=== PATIENT | male | born 1960 | race Caucasian/White ===

== ENCOUNTER 2022-02-11 14:38 | Emergency (ER) | payer SELFPAY ==
--- NOTE | ~2022-02-11 | XR_ITS ---
EXAMINATION: XR toe 1st LT min 2V DATE: 02/11/2022 15:06 INDICATION: Left great toe injury and pain. TECHNIQUE: 3 views of left great toe were obtained. COMPARISON: None. FINDINGS: Bone alignment is normal. No fracture. There is mild osteoarthritis of first metatarsophala ngeal joint. IMPRESSION: 1. No fracture. Reviewed, dictated and finalized at location A. IMPRESSION: 1. No fracture.
[2022-02-11 14:47] VITALS: BP 160/70; PULSE 73; RESP 18; TEMP 37.2; O2SAT 100
--- NOTE | 2022-02-11 14:54 | ED.LOWEXIN ---
HPI - Extremity Injury (Lower) General Chief Complaint: Extremity Injury, Lower Stated Complaint: Injury to toe on left foot Time Seen by Provider: 02/11/22 14:54 Source: patient and RN notes reviewed History of Present Illness HPI Narrative: Patient is a 61-year-old male who presents the urgent care with complaints of left great toe pain. Patient states that yesterday he was wearing a tennis shoe and dropped a 35 pound alternator on the toe. Patient states that he has been eating ibuprofen . No other acute complaints. No acute distress noted. Patient aware of the plan of care. Some parts of this dictation were generated by voice recognition software and may contain typographical and/or grammatical inaccuracies. Related Data Home Medications Medication Instructions Recorded Confirmed No Home Medications 02/11/22 02/11/22 Allergies Allergy/AdvReac Type Severity Reaction Status Date / Time No Known Allergies Allergy Verified 02/11/22 14:57 Review of Systems Review of Systems: CONSTITUTIONAL: Denies fever, chills, or sweats. EYES: Denies visual changes, redness, or discharge. ENT: Denies rhinorrhea, congestion, sore throat, or otalgia. CARDIOVASCULAR: Denies chest pain, palpitations, or edema. RESPIRATORY: Denies cough or dyspnea. GASTROINTESTINAL: Denies abdominal pain, nausea, vomiting, or diarrhea. GENITOURINARY: Denies dysuria or hematuria. SKIN: Denies rash or itching. MUSCULOSKELETAL: Reports of left great toe pain NEUROLOGIC: Denies headache, numbness, or weakness. All other systems reviewed are negative, except as documented in HPI. PMFSH Comments At the time of my signature, I reviewed and agree with the nursing past medical, surgical, social, and family history. There is no relevant family history pertinent to the patient complaint. Exam Narrative: GENERAL: This is a well-nourished, well-developed patient, in no apparent distress. HEAD: normocephalic, atraumatic. EYES: PERRL. Sclera clear/white. Vision is grossly intact. EARS: External ears normal NOSE: External nose normal with no obvious nasal discharge, nares without redness, no rhinorrhea. THROAT: Mucous membranes moist NECK: Neck supple SKIN: Notable severe toe fungus affecting all toes. Warm, intact with no suspicious lesions or rash, good texture and turgor. NEURO: awake, alert, and oriented to person, place and time. There were no obvious focal neurologic abnormalities. EXTREMITIES: Mild edema and moderate ecchymosis noted to the tip of the left great toe with moderate tenderness. Positive strong left pedal pulse with capillary refill less than 2 seconds. Course Course Level of Care: Express Care Visit Vital Signs Vital signs: Vital Signs Temperature 98.9 F 02/11/22 14:47 Pulse Rate 73 02/11/22 14:47 Respiratory Rate 18 02/11/22 14:47 Blood Pressure 160/70 H 02/11/22 14:47 Pulse Oximetry 100 02/11/22 14:47 Oxygen Delivery Room Air 02/11/22 14:47 Temperature 98.9 F 02/11/22 14:47 Pulse Rate 73 02/11/22 14:47 Respiratory Rate 18 02/11/22 14:47 Blood Pressure 160/70 H 02/11/22 15:00 Pulse Oximetry 100 02/11/22 14:47 Oxygen Delivery Room Air 02/11/22 14:47 Reviewed-patient is informed that they may have pre-hypertension or hypertension based on a blood pressure reading in the department. I recommend the patient call the primary care provider listed on their discharge instructions or a physician of their choice this week to arrange follow-up for further evaluation of possible pre-hypertension or hypertension. MDM - Extremity Injury (Lower) MDM Narrative Medical decision making narrative: Reviewed lab results with the patient. He is aware that there is not a fracture on the tuft of the left great toe. Advised him to use Tylenol and limit his ibuprofen as needed for pain and discomfort. Keep it elevated and use ice. Wear the postop shoe as directed. If you develop any increasing pain associated
[2022-02-11 15:00] VITALS: BP 160/70
== END 2022-02-11 15:15 | disposition home or self-care (01) ==
PROVIDERS: Emergency Provider Nurse Practitioner Family; PCP Family Medicine
DX: S90.112A Contusion of left great toe without damage to nail, initial encounter (principal); W20.8XXA Other cause of strike by thrown, projected or falling object, initial encounter
CPT/HCPCS: 73660; 99203; G0463

== ENCOUNTER 2022-07-10 13:41 | Inpatient (IN) | payer MEDICAID, SELFPAY ==
[2022-07-10] VITALS (8 sets, daily range): BP systolic 158–211; BP diastolic 70–92; PULSE 74–88; RESP 14–22; TEMP 36.2–36.9; O2SAT 96–99; BMI 39.1
--- NOTE | ~2022-07-10 | XR_ITS ---
EXAMINATION: XR chest 2V DATE: 07/10/2022 19:17 INDICATION: Right flank and upper abdominal pain TECHNIQUE: PA and lateral views of the chest were obtained. COMPARISON: None FINDINGS: Mild linear band of discoid atelectasis/scarring at the lingula. No other airspace opacities, pulmona ry edema, pleural effusion or pneumothorax. The cardiomediastinal silhouette is normal. There are qiana dging osteophytes at multiple levels in the spine, consistent with diffuse idiopathic skeletal hypero stosis (DISH). IMPRESSION: 1. Mild discoid atelectasis at the lingula. Reviewed, dictated and finalized at location A. TY SITTER
--- NOTE | ~2022-07-10 | MR_ITS ---
EXAMINATION: MR sacroiliac jts wo con DATE: 07/13/2022 07:46 INDICATION: Low back pain. TECHNIQUE: Magnetic resonance imaging (MRI) of the sacroiliac joints was performed without intravenou s contrast. COMPARISON: CT abdomen and pelvis 07/10/2022 FINDINGS: Bone alignment is normal. There is moderate lumbar spondylosis. There is bridging bone at t he sacroiliac joints. There is mild subchondral edema-like marrow signal intensity in left ilium at t he sacroiliac joint where there is an erosion versus subchondral cyst by CT. No fracture. IMPRESSION: 1. Mild nonspecific arthritis of left sacroiliac joint. Ankylosis of the sacroiliac joints. Reviewed, dictated and finalized at location E. OTICS AND VICE DETECTIVE IMPRESSION: 1. Mild nonspecific arthritis of left sacroiliac joint. Ankylosis of the sacroi liac joints.
--- NOTE | ~2022-07-10 | CT_ITS ---
EXAMINATION: CT abdomen pelvis wo con DATE: 07/10/2022 17:46 INDICATION: Right abdominal and mid back pain. TECHNIQUE: Computed tomography (CT) of the abdomen and pelvis was performed without intravenous contr ast. Automated exposure control and iterative reconstruction technique were employed. The dose-length product was 1236.71 mGy-cm. COMPARISON: None FINDINGS: Lung bases are clear. Heart size is normal. No pericardial or pleural effusion. There are a few scatt ered hepatic and splenic calcific lesions consistent with old granulomatous disease. Gallbladder and bilateral adrenal glands are normal. Multiple tiny dystrophic calcifications at the neck, head and un cinate process of the pancreas likely sequela of chronic pancreatitis. No peripancreatic inflammatory stranding to suggest acute pancreatitis. Mild bilateral renal atrophy. No urolithiasis or hydronephr osis. Bowels including the appendix are normal. Bladder is normal. No free intraperitoneal gas or flu id. No pathologically enlarged abdominal or pelvic lymphadenopathy. Small bilateral fat-containing in guinal hernias. There is ankylosis of the bilateral sacroiliac joints, more dense on the right. Moder ate lower lumbar facet osteoarthritis. IMPRESSION: 1. Normal gallbladder and appendix. No urolithiasis or acute intra-abdominal/pelvic process. 2. Multiple tiny dystrophic proximal calcific location and likely sequela of chronic pancreatitis. No findings to suggest acute pancreatitis. 3. Small bilateral fat-containing inguinal hernias. Reviewed, dictated and finalized at location A. AVER WOOD IMPRESSION: 1. Normal gallbladder and appendix. No urolithiasis or acute intra-abdominal/pe lvic process. 2. Multiple tiny dystrophic proximal calcific location and likely sequela of ch ronic pancreatitis. No findings to suggest acute pancreatitis. 3. Small bilateral fat-containing inguinal hernias.
--- NOTE | ~2022-07-10 | US_ITS ---
EXAMINATION: US renal BI DATE: 07/11/2022 08:34 INDICATION: Renal failure. TECHNIQUE: Multiple ultrasound grayscale images of the kidneys were obtained. COMPARISON: CT abdomen and pelvis 07/10/2022 FINDINGS: The right kidney measures 11.5 x 6.5 x 6.4 cm. The left kidney measures 12.1 x 7.2 x 5.5 cm. The kidn eys demonstrate normal parenchymal echogenicity. There is no hydronephrosis. The bladder is normal. IMPRESSION: 1. Normal kidneys. No hydronephrosis. Reviewed, dictated and finalized at location A. AD SEPARATOR
--- NOTE | ~2022-07-10 | NM_ITS ---
EXAMINATION: NM pulmonary perfusion DATE: 07/10/2022 22:30 INDICATION: Right mid back and flank pain. TECHNIQUE: 5.33 mCi mCi Tc-99m MAA by intravenous route. Scintigraphic images of the chest were obta ined. COMPARISON: Radiograph dated 07/20/2022 FINDINGS: There is relatively homogeneous perfusion throughout the lungs. No discrete ventilation and perfusio n mismatch is identified. IMPRESSION: 1. Low probability for pulmonary embolism. Reviewed, dictated and finalized at location A. OLOGY MANAGER
--- NOTE | ~2022-07-10 | MR_ITS ---
EXAMINATION: MR lumbar spine wo con DATE: 07/13/2022 07:47 INDICATION: Low back pain. TECHNIQUE: Magnetic resonance imaging (MRI) of the lumbar spine was performed without intravenous con trast. Sequences included sagittal T2-weighted FSE, sagittal T2-weighted FS FSE, sagittal T1-weighted FSE, and axial T2-weighted FSE. COMPARISON: None FINDINGS: Bone alignment is normal. L5 is a transitional segment. There is a hemangioma in L2 vertebr al body. There is mild chronic anterior wedging of T10 and T12 vertebral bodies. There is mildly decr eased disc height at L4-L5. The distal spinal cord signal intensity is normal. The conus medullaris i s at L1. The following disc levels are specifically discussed: L1-L2: The disc does not extend beyond the endplate margin. There is mild bilateral facet joint osteo arthritis. There is no neural foraminal stenosis. There is no central canal stenosis. L2-L3: The disc is bulging. There is mild bilateral facet joint osteoarthritis. There is mild bilater al neural foraminal stenosis. There is no central canal stenosis. L3-L4: The disc is bulging. There is severe bilateral facet joint osteoarthritis. There is moderate b ilateral neural foraminal stenosis. There is mild central canal stenosis. L4-L5: The disc is bulging and has an annular fissure. There is severe bilateral facet joint osteoart hritis. There is moderate bilateral neural foraminal stenosis. There is mild central canal stenosis. L5-S1: The disc does not extend beyond the endplate margin. There is no facet joint hypertrophy. Ther e is no neural foraminal stenosis. There is no central canal stenosis. IMPRESSION: 1. Moderate lumbar spondylosis. Reviewed, dictated and finalized at location E. SUPPORT ANALYST SUPERVISOR
--- NOTE | 2022-07-10 16:49 | ED.BACK ---
HPI - Back Pain/Injury General Chief Complaint: Back Pain/Injury Stated Complaint: back pain Time Seen by Provider: 07/10/22 16:24 Source: patient Mode of arrival: ambulatory Limitations: no limitations History of Present Illness HPI Narrative: Patient is a 61-year-old male who presents the ED with report of right mid back pain. Patient reports the pain began yesterday morning. Was mild at first. He was able to go to work and took a leftover hydrocodone which provided some relief. Patient had persistent pain today. Pain has been constant. While waiting in the waiting room, the pain did begin to radiate around to the right upper abdomen. He reports some nausea, bloating, and frequent issues with constipation. He was able to pass a few small pieces of stool today. Denied rectal bleeding, diarrhea, vomiting, fevers, chest pain, difficulty breathing, dysuria, hematuria, frequency, urgency. Patient does mention having a similar pain 10-15 years ago when he was diagnosed with kidney stone. Related Data Home Medications Medication Instructions Recorded Confirmed No Home Medications 02/11/22 02/11/22 Allergies Allergy/AdvReac Type Severity Reaction Status Date / Time No Known Allergies Allergy Verified 07/10/22 16:24 Review of Systems Review of Systems: CONSTITUTIONAL: Denies fever, chills, or sweats. CARDIOVASCULAR: Denies chest pain, palpitations, or edema. RESPIRATORY: Denies cough or dyspnea. GASTROINTESTINAL: See HPI. GENITOURINARY: See HPI. SKIN: Denies rash or itching. MUSCULOSKELETAL: See HPI. All systems reviewed & are unremarkable except as noted in HPI and below PMFSH Past Medical History Medical History Kidney stones Surgical History Surgical History No pertinent past surgical history Social History Social History Smoking status: Never smoker Exam Narrative: GENERAL: Uncomfortable appearing, obese, non-toxic, in mild acute distress due to pain. HEAD: Normocephalic, atraumatic. NECK: Supple. No adenopathy, no masses. RESPIRATORY: Airway patent, respirations nonlabored. Clear to auscultation bilaterally, no rales, rhonchi, wheezing. CARDIOVASCULAR: Regular rate and rhythm without murmurs, rubs, or gallops. Peripheral pulses 2+ and equal bilaterally. ABDOMINAL: Soft, tenderness in right upper quadrant, right lateral abdomen, right lower quadrant, nondistended, no hepatosplenomegaly. Normoactive BS. MUSCULOSKELETAL: Moves all extremities. Strength/ROM intact without gross deformities. No significant tenderness to midline thoracic or lumbar spine. Tenderness to palpation in right flank/lumbar region, reproducing pain. SKIN: Warm, dry, normal color. No rashes. No vesicles. NEURO: A&O X3. Speech clear. Cranial nerves II-XII grossly intact. Steady gait. No ataxic movements. PSYCHIATRIC: Appropriate mood and affect. Normal interaction. Course Vital Signs Vital signs: Vital Signs Temperature 98.5 F 07/10/22 14:11 Pulse Rate 77 07/10/22 14:11 Respiratory Rate 14 07/10/22 14:11 Blood Pressure 211/90 H 07/10/22 14:11 Pulse Oximetry 97 07/10/22 14:11 Temperature 98.5 F 07/10/22 14:11 Pulse Rate 87 07/10/22 19:11 Respiratory Rate 17 07/10/22 19:11 Blood Pressure 191/87 H 07/10/22 19:11 Pulse Oximetry 97 07/10/22 19:11 MDM - Back Pain/Injury MDM Narrative Medical decision making narrative: Patient presented to ED with right mid back pain x2 days. Patient hypertensive upon arrival, likely component of pain. He does state he has been told he was hypertensive in the past but is not currently on any medications. CBC showing mild leukocytosis of 12.5. CMP with creatinine of 2.6, no records to compare to. Psychic Reader drawn POC by Radiology and 2.9. BUN 28. Unclear whether this is acute or chron
[2022-07-10] MEDS: SODIUM CHLORIDE 0.9% IV 1,000 ML 999 ML IV CONT ×2 (17:26→19:44)
[2022-07-10] MEDS: ONDANSETRON INJ 4 MG/2 ML VIAL IV PUSH (17:26)
[2022-07-10] MEDS: MORPHINE SULFATE (*CRX) 4 MG/ML INJ IV PUSH ×2 (17:26→19:45)
[2022-07-10 17:35] LABS: Basophils Absolute Auto 0.1 K/mm3 (0.0-0.1); Eosinophils Absolute Auto 0.5 K/mm3 (0-0.3); Eosinophils Percent Auto 3.7 % (0-4.4); Hematocrit 50.2 % (42.0-52.0); Hemoglobin 16.9 g/dL (14.0-18.0); Immature Granulocyte Absolute 0.11 K/mm3 (0.00-0.031); Immature Granulocyte Percent A 0.9 % (0-0.5); Lymphocytes Absolute Auto 2.78 K/mm3 (0.9-3.2); Lymphocytes Percent Auto 21.9 % (18.3-44.2); Mean Corpuscular HGB Conc 33.7 g/dl (32-36); Mean Corpuscular Hemoglobin 31.5 pg (26-34); Mean Corpuscular Volume 93.7 fl (80-100); Mean Platelet Volume 10.9 fl (7.4-10.4); Monocytes Absolute Auto 0.9 K/mm3 (0.1-0.6); Monocytes Percent Auto 7.2 % (2.6-8.5); Neutrophils Absolute Auto 8.3 K/mm3 (1.3-6.7); Neutrophils Percent Auto 65.3 % (45.5-73.1); Platelet Count Result 265 k/mm3 (150-375); Red Blood Count 5.36 M/mm3 (4.6-6.20); Red Cell Distribution Width 13.9 % (11.5-14.5); White Blood Count 12.7 K/mm3 (4.5-10.0)
[2022-07-10 17:39] LABS: Estimated CRCL calculation 27 ml/min; Estimated Glomerular Filt Rate 22
[2022-07-10 17:44] LABS: Alanine Aminotransferase 34 U/L (6-50); Albumin Level 3.8 g/dL (3.5-5.1); Alkaline Phosphatase 92 U/L (38-126); Anion Gap 2 mmol/L (8-16); Aspartate Amino Transferase 24 U/L (17-59); Bilirubin,Total 0.4 mg/dL (0.2-1.3); Blood Urea Nitrogen 28 mg/dL (9-20); Calcium 9.5 mg/dL (8.4-10.2); Carbon Dioxide 24 mmol/L (22-30); Chloride 108 mmol/L (98-107); Estimated CRCL calculation 30 ml/min; Estimated Glomerular Filt Rate 25; Glucose 106 mg/dL (65-110); Lipase 99 U/L (23-300); Potassium 4.5 mmol/L (3.4-5.0); Sodium 134 mmol/L (137-145)
--- NOTE | 2022-07-10 18:54 | ECG_ITS ---
Measurements Intervals Wilson Rate: 66 P: 33 CA: 143 QRS: -3 QRSD: 100 T: 60 QT: 377 QTc: 395 Interpretive Statements SINUS RHYTHM POOR R-WAVE PROGRESSION NONSPECIFIC T-WAVE ABNORMALITY NO PREVIOUS ECG AVAILABLE FOR COMPARISON Electronically Signed On 07-11-2022 13:04:17 LINEN CONTROLLER by Luis Lawton M.D.
[2022-07-10 18:57] LABS: Appearance Urine Clear (Clear); Bilirubin Urine Negative (Negative); Blood Urine 2+ (Negative); Color Urine Yellow (Yellow); Glucose Urine UA Trace mg/dL (Negative); Ketones Urine Negative (Negative); Leukocyte Esterase Ur Negative LEU/UL (Negative); Nitrate Urine Negative (Negative); Protein Urine 3+ mg/dL (Negative); Specific Grav Ur 1.025 (1.001-1.035); Urobilinogen Urine 0.2 mg/dL (<2.0); pH Urine 6.5 (5.0-9.0)
[2022-07-10 19:04] LABS: Mucus Urine Rare /lpf; RBC Urine 0-2 /hpf (0-2); Squamous Epithelial Cell Urine Rare /hpf (Few); WBC Urine 0-3 /hpf
[2022-07-10 19:09] LABS: Add Urine Microscopic? YES
[2022-07-10] MEDS: hydrALAZINE HCL 20 MG/ML VIAL 10 MG IV PUSH (19:43)
[2022-07-10 19:59] LABS: D Dimer 0.58 ug/mL (<0.48)
[2022-07-10 20:00] LABS: Troponin I < 0.012 ng/mL (0.000-0.034)
[2022-07-10 20:16] LABS: Influenza A QL RT-PCR Negative (Negative); Influenza B QL RT-PCR Negative (Negative); SARS-CoV-2 RNA PCR Negative
--- NOTE | 2022-07-10 20:24 | PM.IMHP ---
H&P: HPI History of Present Illness Date/Time: 07/10/22 20:24 Chief Complaint: back pain Narrative: This is a 61-year-old male with past medical history significant for hypertension, obesity, patient has not seen a doctor in a long time he is not on any medications at home his blood pressure is not well controlled patient presented to the emergency room due to back pain localized to the right costovertebral area with radiation to the right lower flank at the abdominal area, patient has been in his usual state of health up until this point described the pain of 10/10 in intensity it is worse with ambulation denies lifting heavy boxes or moving heavy objects, took ibuprofen and Tylenol with no relief, no hematuria, no pain or burning with urination, no fevers, no rigors, no chills, no nausea, no vomiting, no incontinence. Preliminary workup was significant for a creatinine of 2.9 BUN 28, he was noted to be hypertensive with systolic in the range of 160-200s a CT of abdomen and pelvis was reported as: FINDINGS: Lung bases are clear. Heart size is normal. No pericardial or pleural effusion. There are a few scattered hepatic and splenic calcific lesions consistent with old granulomatous disease. Gallbladder and bilateral adrenal glands are normal. Multiple tiny dystrophic calcifications at the neck, head and uncinate process of the pancreas likely sequela of chronic pancreatitis. No peripancreatic inflammatory stranding to suggest acute pancreatitis. Mild bilateral renal atrophy. No urolithiasis or hydronephrosis. Bowels including the appendix are normal. Bladder is normal. No free intraperitoneal gas or fluid. No pathologically enlarged abdominal or pelvic lymphadenopathy. Small bilateral fat-containing inguinal hernias. There is ankylosis of the bilateral sacroiliac joints, more dense on the right. Moderate lower lumbar facet osteoarthritis. IMPRESSION: 1. Normal gallbladder and appendix. No urolithiasis or acute intra-abdominal/pelvic process. 2. Multiple tiny dystrophic proximal calcific location and likely sequela of chronic pancreatitis. No findings to suggest acute pancreatitis. 3. Small bilateral fat-containing inguinal hernias. A chest x-ray was reported as: FINDINGS: Mild linear band of discoid atelectasis/scarring at the lingula. No other airspace opacities, pulmonary edema, pleural effusion or pneumothorax. The cardiomediastinal silhouette is normal. There are bridging osteophytes at multiple levels in the spine, consistent with diffuse idiopathic skeletal hyperostosis (DISH). IMPRESSION: 1. Mild discoid atelectasis at the lingula. A V/Q scan was reported as: FINDINGS: There is relatively homogeneous perfusion throughout the lungs.? No discrete ventilation and perfusion mismatch is identified. IMPRESSION: 1.? Low probability for pulmonary embolism. Patient is been placed in observation for further evaluation management and treatment. Review of Systems Review of Systems: Right costovertebral angle pain Constitutional: Constitutional: Denies chills, Denies fever(s), Denies malaise, Denies night sweats, Denies poor appetite and Denies weakness Eyes: Eyes: Denies change in vision ENT: Denies dysphagia, Denies vertigo, Denies dizziness and Denies odynophagia Cardiovascular: Cardiovascular: Denies chest pain, Denies irregular heart rhythm, Denies leg edema, Denies lightheadedness, Denies radiating jaw, neck or arm pain and Denies dyspnea on exertion Respiratory: Respiratory: Denies chest congestion, Denies cough, Denies excessive phlegm production, Denies pain on inspiration, Denies dyspnea and Denies dyspnea on exertion Gastrointestinal: Gastrointestinal: Reports abdominal pain (Right flank), Denies melena, Denies dyspepsia, Denies heartburn, Denies diarrhea, Denies nausea and Denies vomiting Genitourinary: Genitourinary: Denies dysuria and Reports flank pain (Right-sided) Musculoskeletal: Musculoskeletal: Reports back pain (Rig
[2022-07-10] MEDS: HYDROmorphone HCL INJ (*CRX) 1 MG/ML SYR IV PUSH (20:40)
--- NOTE | 2022-07-10 22:04 | PC.NURSE ---
PT TO NUCLEAR MEDICINE
--- NOTE | 2022-07-10 23:10 | ADMGEN ---
This patient, Parveen Abreu, was admitted to Medical Room 341-01. Patient/family oriented to hospital policies and general routines including ID bracelet, bed and alarms, visiting hours, pain management, procedures, bathroom and other care routines, personal items, smoking policy, room service/diet, and visiting hours. Information on how to activate the Rapid Response Team has been discussed. Patient/Family are encouraged to report perceived risks to care and to ask questions if they do not understand what they are told or what they should do.
[2022-07-11] VITALS (9 sets, daily range): BP systolic 152–159; BP diastolic 79–85; PULSE 58–80; RESP 20; TEMP 35.7–36.6; O2SAT 95–98
--- NOTE | 2022-07-11 | ECHO_ITS ---
Patient Info Name: Parveen Abreu Age: 61 years : 1960 Gender: Male Ht: 66 in Wt: 240 lbs BSA: 2.30 m2 HR: 55 bpm BP: 152 / 85 mmHg Technical Quality: Good Exam Date: 07/11/2022 9:09 AM Exam Location: [facility] Patient Status: Outpatient Admit Date: 07/10/2022 Staff Ordering Physician: Vianey Estevez MD Business Intelligence Administrator: Warren Jacob, IVY, RT Attending Provider: Vianey Estevez MD Referring Physician: Zenaida QUESADA; Exam Type: CA echo doppler color flow Study Info Indications I10 - Essential (primary) hypertension Complete two-dimensional, color flow and Doppler transthoracic echocardiogram is performed. Strain analysis performed. Summary 1. Complete two-dimensional, color flow and Doppler transthoracic echocardiogram is performed. 2. Left ventricular chamber dimension is normal. 3. Left ventricular systolic function is normal, estimated at 60-65%. 4. The left ventricular diastolic function is grade III diastolic dysfunction. 5. E/e' 16 is elevated. 6. Global longitudinal strain is abnormal at -9.7%. 7. There is trace mitral valve regurgitation. Left Ventricle E/e' 16 is elevated. Global longitudinal strain is abnormal at -9.7%. Left ventricular chamber dimension is normal. Left ventricular systolic function is normal, estimated at 60-65%. The left ventricular diastolic function is grade III diastolic dysfunction. Right Ventricle Right ventricular systolic function is normal and with normal TAPSE 2.6 cm. Right ventricular chamber dimension is normal. Left Atria Left atrial chamber dimension is normal. Right Atria Right atrial chamber dimension is normal. Aortic Valve The aortic valve is trileaflet. There is no aortic valve stenosis. There is no aortic valve regurgitation. Pulmonic Valve There is no pulmonic regurgitation. Mitral Valve There is no mitral valve stenosis. There is trace mitral valve regurgitation. Tricuspid Valve There is no tricuspid valve regurgitation. Pericardium/Pleural There is no pericardial effusion. Inferior Vena Cava Normal inferior vena cava with >50% collapse upon inspiration consistent with normal right atrial pressure, 5 mmHg. Aorta The aortic root size at the sinus of Valsalva is normal. Left Ventricular Outflow Tract Name Value Normal LVOT 2D LVOT Diameter 2.0 cm LVOT Doppler LVOT Peak Gradient 4 mmHg LVOT Mean Gradient 2 mmHg LVOT VTI 21 cm LVOT VTI/AV VTI Ratio 0.7 LVOT Stroke Volume 65 ml LVOT CO 4.1 l/min LVOT CI 1.8 l/min/m2 Mitral Valve Name Value Normal MV Doppler MV Decel Ventura 571 cm/s2 MV PHT
[2022-07-11 05:39] LABS: Basophils Absolute Auto 0.1 K/mm3 (0.0-0.1); Basophils Percent Auto 0.9 % (0.2-1.2); Eosinophils Absolute Auto 0.4 K/mm3 (0-0.3); Eosinophils Percent Auto 3.8 % (0-4.4); Hematocrit 43.7 % (42.0-52.0); Hemoglobin 14.6 g/dL (14.0-18.0); Immature Granulocyte Absolute 0.05 K/mm3 (0.00-0.031); Immature Granulocyte Percent A 0.5 % (0-0.5); Mean Corpuscular HGB Conc 33.4 g/dl (32-36); Mean Corpuscular Hemoglobin 31.2 pg (26-34); Mean Corpuscular Volume 93.4 fl (80-100); Monocytes Absolute Auto 0.8 K/mm3 (0.1-0.6); Monocytes Percent Auto 7.7 % (2.6-8.5); Neutrophils Absolute Auto 6.4 K/mm3 (1.3-6.7); Neutrophils Percent Auto 64.1 % (45.5-73.1); Platelet Count Result 225 k/mm3 (150-375); Red Blood Count 4.68 M/mm3 (4.6-6.20); Red Cell Distribution Width 13.8 % (11.5-14.5)
[2022-07-11 05:41] LABS: Anion Gap 1 mmol/L (8-16); Blood Urea Nitrogen 26 mg/dL (9-20); Calcium 8.7 mg/dL (8.4-10.2); Carbon Dioxide 21 mmol/L (22-30); Chloride 110 mmol/L (98-107); Estimated CRCL calculation 38 ml/min; Estimated Glomerular Filt Rate 31; Glucose 100 mg/dL (65-110); Potassium 4.3 mmol/L (3.4-5.0); Sodium 132 mmol/L (137-145)
[2022-07-11 07:26] LABS: Creatinine Urine 119.6 mg/dL; Urea Random Urine 671 MG/DL
[2022-07-11 07:34] LABS: Sodium Urine Random 91 meq/L
[2022-07-11 07:58] LABS: Total Protein Urine Random > 600 mg/dL
[2022-07-11 08:52] LABS: Eosinophil Urine None Seen % (None Seen)
[2022-07-11] MEDS: NICOTINE (*PBKC) 21 MG PATCH 1 PATCH TRANSDERM (08:52)
[2022-07-11] MEDS: ENOXAPARIN 40 MG/0.4 ML SYRINGE SUB-Q (08:52)
[2022-07-11] MEDS: amLODIPine BESYLATE 5 MG TABLET 10 MG PO (08:52)
[2022-07-11] MEDS: traMADol HCL (*CRX) 50 MG TABLET PO ×2 (08:52→20:23)
[2022-07-11 09:22] LABS: Urine Eos QC 2nd Tech Confirmed
--- NOTE | 2022-07-11 11:10 | PM.CNNEP ---
Assessment and Plan Assessment and plan (1) CKD (chronic kidney disease): Code(s): N18.9 - Chronic kidney disease, unspecified Status: Chronic Assessment and Plan: had been following with Dr. Galeas for kidney issues unable to get specifics from patient... old records requested but I was able to discuss case with Dr. 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 never started on immunosupprestion due to recurrent dental infections that he would not get treatment for and significant non-compliance last seen in 2018 -- creatinine at that time was 2.4mg/dl hence he has CKD and surprisingly, renal function is relatively stable in comparison to 5 years ago (CKD stage 3b) (2) Uncontrolled hypertension: Code(s): I10 - Essential (primary) hypertension Status: Acute Assessment and Plan: doing better at this time follow-up on Echo pain maybe playing a role currently on amlodipine and PRN hydralazine (3) Acute right flank pain: Code(s): R10.9 - Unspecified abdominal pain Status: Acute Assessment and Plan: unclear etiology imaging noted possibly musculoskeletal (?) Will continue to follow. History of Present Illness Reason for Consult Consult date: 07/11/22 Reason for consult: chronic renal failure Chief Complaint Chief complaint: Uncontrolled HTN,Renal Insufficiency, R Flank Pain History of Present Illness Narrative: The patient is a 61-year-old male with a past medical history as noted below presented to [facility] Emergency room for further evaluation of abdominal pain. The patient reports right lower quadrant abdominal pain with associated right costovertebral tenderness and radiation to his back. He does not elaborate on how long the symptoms have been going on other than that the severity was 10/10 in intensity and was worse with any ambulatory activity. He denies any trauma to the area or heavy lifting or moving of any other heavy objects recently. He reports taking ibuprofen and Tylenol with no significant relief in the symptoms. He presented to the emergency room for further assessment. Workup and evaluation emergency room demonstrated the patient to be quite hypertensive with systolic BP in the 200s. Routine blood test demonstrated elevated BUN and creatinine but at that time, it was not clear if he had any underlying kidney issues or kidney problems as he has not seen a doctor for many years. CT imaging of his abdomen /pelvis did not demonstrate any acute intra-abdominal pathology to explain his abdominal pain. Given his hypertension in association with presumed acute kidney injury and abdominal pain, he received medications for his blood pressure and pain control and was subsequently admitted to the hospital for further evaluation and therapy. Renal consultation was requested due to his elevated BUN and creatinine. The patient tells me that approximately 5-10 years ago he was seen Dr. Galeas for management of his kidney issues. Unfortunately, the patient is a very poor historian with regard to his kidney problems and he was not able to elaborate to me what exactly he was seeing Dr. Galeas for, what he was told about his kidneys, or where his baseline kidney function normally runs. I was able to discover that he did undergo a renal biopsy presumably for definitive diagnosis of what was going on with his kidney function but once again, he is unable to elaborate on what the biopsy showed or what treatment he received although he did mention that he thinks he may have needed to get the immunosuppressive therapy but this did not occur. He never really followed up with Dr. Galeas and he thinks he was last seen by him in 2018. Currently, at the time my visit, his right abdominal/back pain seems to be better controlled but still present. Review of Systems Review of Systems: As per HPI. P
--- NOTE | 2022-07-11 12:06 | PM.IMPN ---
Progress Note: A&P Assessment and Plan (1) Acute right flank pain: Code(s): R10.9 - Unspecified abdominal pain Status: Acute Assessment and Plan: Admit to regular medical floor with telemetry CT of abdomen and pelvis reviewed Chest x-ray reviewed V/Q scan reviewed Unclear etiology Will continue to monitor Supportive care 07/11/2022 interval history: patient with right flank pain without any history of complaint of hematuria, CT scan abdomen is negative for any pathology similarly patient had a kidney ultrasound did not show any pathology, patient denies any rash along the right flank unlikely shingles, patient be seen nephrology and urologist and further recommendation to follow. (2) Renal insufficiency: Code(s): N28.9 - Disorder of kidney and ureter, unspecified Status: Acute Assessment and Plan: Patient with longstanding hypertension which has been untreated Will obtain a renal ultrasound in a.m. Urine lytes in progress FENA in progress Gentle hydration Daily BMP Nephrology consult (3) Uncontrolled hypertension: Code(s): I10 - Essential (primary) hypertension Status: Acute Assessment and Plan: Has been on treated Started on amlodipine Hydralazine p.r.n. Echocardiogram in a.m. (4) Obesity (BMI 30-39.9): Code(s): E66.9 - Obesity, unspecified Status: Acute Assessment and Plan: Lifestyle and diet modifications Subjective Date/time seen: 07/11/22 12:06 back pain Narrative: This is a 61-year-old male with past medical history significant for hypertension, obesity, patient has not seen a doctor in a long time he is not on any medications at home his blood pressure is not well controlled patient presented to the emergency room due to back pain localized to the right costovertebral area with radiation to the right lower flank at the abdominal area, patient has been in his usual state of health up until this point described the pain of 10/10 in intensity it is worse with ambulation denies lifting heavy boxes or moving heavy objects, took ibuprofen and Tylenol with no relief, no hematuria, no pain or burning with urination, no fevers, no rigors, no chills, no nausea, no vomiting, no incontinence.? Preliminary workup was significant for a creatinine of 2.9 BUN 28, he was noted to be hypertensive with systolic in the range of 160-200s a CT of abdomen and pelvis was reported as: 07/11/2022 interval history: patient with right flank pain without any history of complaint of hematuria, CT scan abdomen is negative for any pathology similarly patient had a kidney ultrasound did not show any pathology, patient denies any rash along the right flank unlikely shingles, patient be seen nephrology and urologist and further recommendation to follow. Review of Systems Constitutional: Constitutional: Denies chills, Denies fever(s), Denies malaise, Denies night sweats, Denies poor appetite and Denies weakness Exam Narrative: moderately obese Patient is comfortable, NAD HEENT: eyes are clear and none icteric LUNGS: normal respiratory effort ABD: right flank pain Lower extremities: no edema SKIN: nonjaundiced Neuro: grossly intact. Objective Data Vital Signs Vital Signs: Vital Signs - 24 hr 07/10/22 14:11 07/10/22 19:11 07/10/22 19:15 Temperature 98.5 F Pulse Rate 77 87 84 Respiratory Rate 14 17 16 Blood Pressure 211/90 H 191/87 H 181/92 H Pulse Oximetry 97 97 98 Oxygen Delivery 07/10/22 20:40 07/10/22 22:04 07/10/22 20:54 Temperature Pulse Rate 86 88 Respiratory Rate 16 18 Blood Pressure 159/71 H 167/89 H Pulse Oximetry 99 97 98 Oxygen Delivery 07/10/22 21:00 07/10/22 23:29 07/10/22 23:17 Temperature 97.1 F L Pulse Rate 74 81 Respiratory Rate 16 22 H Blood Pressure 168/86 H 158/70 H Pulse Oximetry 96 96 Oxygen Delivery Room Air 07/11/22 04:11 07/11/22 00:00 07/11/22 04:00 Temperature 97.6 F Pulse Rate
--- NOTE | 2022-07-11 17:00 | WPDURCON ---
Assessment and Plan Assessment and plan (1) Acute right flank pain: Code(s): R10.9 - Unspecified abdominal pain Status: Acute Assessment and Plan: CT shows no abnormality. Look for other sources of flank pain as it is not urologic in nature. (2) Microhematuria: Code(s): R31.29 - Other microscopic hematuria Status: Acute Assessment and Plan: Collect a urine culture to rule out infection although he is otherwise asymptomatic. Upon percussion of his flank he is not in pain, his pain is just proximal to the right iliac crest. F/U in the office for a cysto d/t microhematuria and normal upper tracts on CT. No furthe evalaution needed. Urology Consult Note HPI Date Seen: 07/11/22 Time Seen: 13:30 Requesting Physician: Vianey Estevez MD Primary Care Provider: UNKNOWN,DOCTOR Consult Narrative Reason for consult: Right Flank Pain Narrative: Parveen Abreu is a 61 year old male who we were asked to see for moderate, worsening right flank pain. He had a CT on 07/10/22 which shows no urologic obstruction or abnormality. His creatinine continues to rise to 2.9 today, UA shows microscopic blood, otherwise it doesn't appear infected. He denies dysuria, frequency, urgency, hesitancy or pelvic pressure. His WBC is 10.0. He states he has a history of kidney stones and see's a guidance director and has had a renal biopsy in the recent past. Review of Systems Cardiovascular: Cardiovascular: Denies chest pain Gastrointestinal: Gastrointestinal: Denies abdominal pain, Denies nausea and Denies vomiting Genitourinary: Genitourinary: Denies hematuria, Denies dysuria, Reports flank pain, Denies urinary frequency, Denies urinary hesitancy, Denies urinary incontinence and Denies urinary urgency PMF Past Medical History Medical History Kidney stones Surgical History Surgical History No pertinent past surgical history Family History Family History Father Acute myocardial infarction Mother Diabetes mellitus Grandparent Diabetes mellitus Social History Social History Smoking packs per day: 1 Smoking cigarettes per day: 20.0 Smoking status: Current every day smoker Alcohol intake: current Drinks per week: 1 Substance use: never Lack of Transportation: No Lack of Food: Never True Current Housing: I Have Housing Concerned About Future Housing: No Difficulty Paying Gas/Electric Bills: No Difficulty Paying for Meds: No Currently Unemployed: No Education: Associate Degree Difficulty w/ Childcare or Family Care: No Spiritual care concerns: No Meds Home Medications and Allergies Home Medications Medication Instructions Recorded Confirmed Type No Home Medications 02/11/22 07/10/22 History Allergies Allergy/AdvReac Type Severity Reaction Status Date / Time No Known Allergies Allergy Verified 07/10/22 16:24 Vital Signs Vital Signs - 24 hr 07/10/22 19:11 07/10/22 19:15 07/10/22 20:40 Temperature Pulse Rate 87 84 86 Respiratory Rate 17 16 16 Blood Pressure 191/87 H 181/92 H 159/71 H Pulse Oximetry 97 98 99 Oxygen Delivery 07/10/22 22:04 07/10/22 20:54 07/10/22 21:00 Temperature Pulse Rate 88 74 Respiratory Rate 18 16 Blood Pressure 167/89 H 168/86 H Pulse Oximetry 97 98 96 Oxygen Delivery 07/10/22 23:29 07/10/22 23:17 07/11/22 04:11 Temperature 97.1 F L 97.6 F Pulse Rate 81 68 Respiratory Rate 22 H 20 Blood Pressure 158/70 H 152/85 H Pulse Oximetry 96 98 Oxygen Delivery Room Air 07/11/22 00:00 07/11/22 04:00 07/11/22 09:00 Temperature Pulse Rate 80 72 67 Respiratory Rate Blood Pressure Pulse Oximetry Oxygen Delivery 07/11/22 09:00 07/11/22 12:
[2022-07-12] VITALS (9 sets, daily range): BP systolic 150–171; BP diastolic 72–80; PULSE 55–85; RESP 18–20; TEMP 36.6–36.8; O2SAT 96–98
[2022-07-12 05:43] LABS: Hematocrit 46.1 % (42.0-52.0); Hemoglobin 15.5 g/dL (14.0-18.0); Mean Corpuscular HGB Conc 33.6 g/dl (32-36); Mean Corpuscular Hemoglobin 30.5 pg (26-34); Mean Corpuscular Volume 90.7 fl (80-100); Mean Platelet Volume 11.4 fl (7.4-10.4); Platelet Count Result 239 k/mm3 (150-375); Red Blood Count 5.08 M/mm3 (4.6-6.20); Red Cell Distribution Width 13.6 % (11.5-14.5); White Blood Count 9.7 K/mm3 (4.5-10.0)
[2022-07-12 06:02] LABS: Albumin Level 3.3 g/dL (3.5-5.1); Anion Gap 5 mmol/L (8-16); Blood Urea Nitrogen 24 mg/dL (9-20); Carbon Dioxide 19 mmol/L (22-30); Chloride 109 mmol/L (98-107); Estimated CRCL calculation 38 ml/min; Estimated Glomerular Filt Rate 31; Glucose 152 mg/dL (65-110); Phosphorus 2.7 mg/dL (2.5-4.5); Potassium 4.7 mmol/L (3.4-5.0); Sodium 133 mmol/L (137-145)
[2022-07-12] MEDS: ENOXAPARIN 40 MG/0.4 ML SYRINGE SUB-Q (08:38)
[2022-07-12] MEDS: NICOTINE (*PBKC) 21 MG PATCH 1 PATCH TRANSDERM (08:39)
[2022-07-12] MEDS: amLODIPine BESYLATE 5 MG TABLET 10 MG PO (08:39)
--- NOTE | 2022-07-12 11:44 | P.PNNP_ITS ---
Progress Note: A&P Assessment and Plan (1) CKD (chronic kidney disease): Code(s): N18.9 - Chronic kidney disease, unspecified Status: Chronic Assessment and Plan: * had been following with Dr. Galeas for kidney issues * unable to get specifics from patient... * old records requested but I was able to discuss case with Dr. 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 ? WHO class 4 Lupus? * never started on immunosupprestion due to recurrent dental infections that he would not get treatment for and significant non-compliance * last seen in 2018 -- creatinine at that time was 2.4mg/dl * hence he has CKD and surprisingly, renal function is relatively stable in comparison to 5 years ago (CKD stage 3b) * today his creatinine is a little bit better at 2.2. (2) Uncontrolled hypertension: Code(s): I10 - Essential (primary) hypertension Status: Acute Assessment and Plan: * doing better at this time * follow-up on Echo * pain maybe playing a role * currently on amlodipine and PRN hydralazine (3) Acute right flank pain: Code(s): R10.9 - Unspecified abdominal pain Status: Acute Assessment and Plan: * unclear etiology * imaging noted * It looks too low to be from his kidneys. * he does have blood in the urine. * CT is negative. * Renal ultrasound is negative. * He does have some blood in the urine but also has proteinuria and membranous nephropathy with full house immuno side a chemistry suggesting who class 4 lupus? This would come with blood in the urine. * possibly musculoskeletal (?). Symptoms and location suggest a musculoskeletal issue. Will continue to follow. Subjective Date/time seen: 07/12/22 11:44 Interval history: Parveen still has right lower back pain. It is at the level of his belt. No chest pain or shortness of breath. No pain with urination. No skin rash in the area of the pain Review of Systems Cardiovascular: Cardiovascular: Reports no additional cardiovascular complaints Respiratory: Respiratory: Reports no additional respiratory complaints Gastrointestinal: Gastrointestinal: Reports no additional gastrointestinal complaints Genitourinary: Genitourinary: Reports no additional male genitourinary complaints Exam Narrative: WDWN in NAD skin no rash head ncat lungs clear cor reg no rub abd BS+ nontender and soft ext trace edema. Objective Data Vital Signs Vital Signs: Vital Signs - 24 hr 07/11/22 12:00 07/11/22 14:00 07/11/22 16:00 Temperature 96.2 F L Pulse Rate 58 L 63 60 Respiratory Rate 20 Blood Pressure 159/79 H Pulse Oximetry 95 Oxygen Delivery 07/11/22 20:20 07/11/22 20:00 07/12/22 04:14 Temperature 97.8 F 97.9 F Pulse Rate 58 L 55 L Respiratory Rate 20 18 Blood Pressure 155/79 H 150/74 H Pulse Oximetry 97 98 Oxygen Delivery Room Air 07/11/22 20:00 07/12/22 00:00 07/12/22 04:00 Temperature Pulse Rate 62 56 L 66 Respiratory Rate Blood Pressure Pulse Oximetry Oxygen Delivery Intake/Output Intake/Output:
--- NOTE | 2022-07-12 11:44 | PM.PNNEP ---
Progress Note: A&P Assessment and Plan (1) CKD (chronic kidney disease): Code(s): N18.9 - Chronic kidney disease, unspecified Status: Chronic Assessment and Plan: had been following with Dr. Galeas for kidney issues unable to get specifics from patient... old records requested but I was able to discuss case with Dr. 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 ? WHO class 4 Lupus? never started on immunosupprestion due to recurrent dental infections that he would not get treatment for and significant non-compliance last seen in 2018 -- creatinine at that time was 2.4mg/dl hence he has CKD and surprisingly, renal function is relatively stable in comparison to 5 years ago (CKD stage 3b) today his creatinine is a little bit better at 2.2. (2) Uncontrolled hypertension: Code(s): I10 - Essential (primary) hypertension Status: Acute Assessment and Plan: doing better at this time follow-up on Echo pain maybe playing a role currently on amlodipine and PRN hydralazine (3) Acute right flank pain: Code(s): R10.9 - Unspecified abdominal pain Status: Acute Assessment and Plan: unclear etiology imaging noted It looks too low to be from his kidneys. he does have blood in the urine. CT is negative. Renal ultrasound is negative. He does have some blood in the urine but also has proteinuria and membranous nephropathy with full house immuno side a chemistry suggesting who class 4 lupus? This would come with blood in the urine. possibly musculoskeletal (?). Symptoms and location suggest a musculoskeletal issue. Will continue to follow. Subjective Date/time seen: 07/12/22 11:44 Interval history: Parveen still has right lower back pain. It is at the level of his belt. No chest pain or shortness of breath. No pain with urination. No skin rash in the area of the pain Review of Systems Cardiovascular: Cardiovascular: Reports no additional cardiovascular complaints Respiratory: Respiratory: Reports no additional respiratory complaints Gastrointestinal: Gastrointestinal: Reports no additional gastrointestinal complaints Genitourinary: Genitourinary: Reports no additional male genitourinary complaints Exam Narrative: WDWN in NAD skin no rash head ncat lungs clear cor reg no rub abd BS+ nontender and soft ext trace edema. Objective Data Vital Signs Vital Signs: Vital Signs - 24 hr 07/11/22 12:00 07/11/22 14:00 07/11/22 16:00 Temperature 96.2 F L Pulse Rate 58 L 63 60 Respiratory Rate 20 Blood Pressure 159/79 H Pulse Oximetry 95 Oxygen Delivery 07/11/22 20:20 07/11/22 20:00 07/12/22 04:14 Temperature 97.8 F 97.9 F Pulse Rate 58 L 55 L Respiratory Rate 20 18 Blood Pressure 155/79 H 150/74 H Pulse Oximetry 97 98 Oxygen Delivery Room Air 07/11/22 20:00 07/12/22 00:00 07/12/22 04:00 Temperature Pulse Rate 62 56 L 66 Respiratory Rate Blood Pressure Pulse Oximetry Oxygen Delivery Intake/Output Intake/Output: Intake & Output 07/09/22 07/10/22 07/11/22 07/12/22 23:59 23:59 23:59 23:59 Intake Total 2100 900 740 Output Total 200 Balance 2100 700 740 Meds/Results Medications: Active Medications Generic Name Dose Route Start Last Admin Trade Name Freq PRN Reason Stop Dose Admin Acetaminophen 1,000 mg 07/10/22 23:59 Acetaminophen 500 Mg Tablet PO Q6H PRN Mild Pain (1-3) or Fever Amlodipine Besylate 10 mg 07/11/22 09:00 07/12/22 08:39 Amlodipine Besylate 5 Mg Tablet PO 10 mg QAM [facility] Administration Calcium Carbonate 200 mg 07/11/22 21:40 Calcium Carbonate (Tums) 500 Mg (200 Mg Elemental) PO Q6H PRN Indigestion Enoxaparin Sodium 40 mg 07/11/22 09:00 07/12/22 08:38 Enoxaparin 40 Mg/0.4 Ml Syringe SUB-Q 40 mg DAILY [facility] Administrat
--- NOTE | 2022-07-12 15:12 | PM.IMPN ---
Progress Note: A&P Assessment and Plan (1) Acute right flank pain: Code(s): R10.9 - Unspecified abdominal pain Status: Acute Assessment and Plan: likely etiology right sacroilitis. will start steroid. muscle rleaxant. lidocaine patch locally. 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 no featrues of lumbar radiculopathy will order MRI ow. (2) Renal insufficiency: Code(s): N28.9 - Disorder of kidney and ureter, unspecified Status: Acute Assessment and Plan: Patient with longstanding hypertension which has been untreated has underlying CKD stage III, biopsy diagnosis of Membranous nephropathy with full house on immunofluorescence but negative serology or clinical evidence of lupus. Patient was not treated with immunosuppressant/cytotoxic agents secondary to concern for follow-up. Creatinine in the past was 2.8 as of note from 2017 high protein urea and hyper parathyroidism Creatinine seems to be at baseline He was started on mycophenolate mofetil in the past Renal ultrasound negative (3) Uncontrolled hypertension: Code(s): I10 - Essential (primary) hypertension Status: Acute Assessment and Plan: Has been on treated. He used to be on furosemide carvedilol and amlodipine lisinopril in the past Started on amlodipine Hydralazine p.r.n. Echo with EF 60-65% grade 3 diastolic dysfunction no significant valvular abnormality (4) Obesity (BMI 30-39.9): Code(s): E66.9 - Obesity, unspecified Status: Acute Assessment and Plan: Lifestyle and diet modifications Plan Elevated D-dimer V/Q scan was negative History of membranous nephropathy determined by biopsy he presented with anasarca and 2013 found to have 10 g of proteinuria. Kidney biopsy performed revealed membranous nephropathy with full house on immunofluorescence but negative serology clear clinical evidence of lupus. His creatinine at that time was 0.9. 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 Creatinine slowly has worsened to 2.8 back in 2017 Nephrotic range proteinuria CKD stage 3 Subjective Date/time seen: 07/12/22 15:12 Interval history: no overnight events, patient with right low back pain. no radiation. no chest pain sob. Review of Systems Review of Systems: All systems reviewed & are unremarkable except as noted in HPI and below Exam Narrative: moderately obese Patient is comfortable, NAD HEENT: eyes are clear and none icteric LUNGS: normal respiratory effort ABD: right SI joint tenderness Lower extremities: no edema no cyanosis or clubbing SKIN: nonjaundiced Neuro: grossly intact. Objective Data Vital Signs Vital Signs: Vital Signs - 24 hr 07/11/22 16:00 07/11/22 20:20 07/11/22 20:00 Temperature 97.8 F Pulse Rate 60 58 L Respiratory Rate 20 Blood Pressure 155/79 H Pulse Oximetry 97 Oxygen Delivery Room Air 07/12/22 04:14 07/11/22 20:00 07/12/22 00:00 Temperature 97.9 F Pulse Rate 55 L 62 56 L Respiratory Rate 18 Blood Pressure 150/74 H Pulse Oximetry 98 Oxygen Delivery 07/12/22 04:00 07/12/22 08:00 Temperature Pulse Rate 66 59 L Respiratory Rate Blood Pressure Pulse Oximetry Oxygen Delivery Intake/Output Intake/Output: Intake & Output 07/09/22 07/10/22 07/11/22 07/12/22 23:59 23:59 23:59 23:59 Intake Total 2100 900 980 Output Total 200 Balance 2100 700 980 Meds/Results Medications: Active Medications Generic Name Dose Route Start Last Admin Trade Name Freq PRN Reason Stop Dose Admin Acetaminophen 1,000 mg 07/10/22 23:59 Acetaminophen 500 Mg Tablet PO Q6H PRN Mild Pain (1-3) or Fever Amlodipine Besylate 10 mg 07/11/22 09:00 07/12/22 08:39 Amlodipine Besylate 5 Mg Tablet PO 10 mg QAM [facility] Administration Calcium Carbonate 200 mg 07/11/22 21:40 Calcium Carbonate (Tums) 500
[2022-07-12] MEDS: predniSONE 40 MG, predniSONE 10 MG 50 MG PO (15:50)
[2022-07-12] MEDS: LIDOCAINE 5% PATCH 1 PATCH TRANSDERM (15:50)
[2022-07-12] MEDS: methocarbamoL 750 MG TABLET PO (15:51)
[2022-07-12] MEDS: CALCIUM CARBONATE (TUMS) 500 MG (200 MG ELEMENTAL) PO (15:56)
[2022-07-13] VITALS (8 sets, daily range): BP systolic 156–172; BP diastolic 69–95; PULSE 61–85; RESP 18–19; TEMP 36.4–36.6; O2SAT 96–97
[2022-07-13 05:44] LABS: Basophils Absolute Auto 0.1 K/mm3 (0.0-0.1); Basophils Percent Auto 0.3 % (0.2-1.2); Eosinophils Percent Auto 0.3 % (0-4.4); Hematocrit 48.5 % (42.0-52.0); Hemoglobin 16.6 g/dL (14.0-18.0); Immature Granulocyte Percent A 0.7 % (0-0.5); Lymphocytes Absolute Auto 1.76 K/mm3 (0.9-3.2); Lymphocytes Percent Auto 11.8 % (18.3-44.2); Mean Corpuscular HGB Conc 34.2 g/dl (32-36); Mean Corpuscular Hemoglobin 31.4 pg (26-34); Mean Corpuscular Volume 91.9 fl (80-100); Mean Platelet Volume 11.1 fl (7.4-10.4); Monocytes Absolute Auto 0.7 K/mm3 (0.1-0.6); Neutrophils Absolute Auto 12.2 K/mm3 (1.3-6.7); Neutrophils Percent Auto 81.9 % (45.5-73.1); Platelet Count Result 257 k/mm3 (150-375); Red Blood Count 5.28 M/mm3 (4.6-6.20); Red Cell Distribution Width 13.5 % (11.5-14.5); White Blood Count 14.9 K/mm3 (4.5-10.0)
[2022-07-13 05:54] LABS: Alanine Aminotransferase 30 U/L (6-50); Albumin Level 3.7 g/dL (3.5-5.1); Alkaline Phosphatase 85 U/L (38-126); Anion Gap 5 mmol/L (8-16); Aspartate Amino Transferase 20 U/L (17-59); Bilirubin,Total 0.4 mg/dL (0.2-1.3); Blood Urea Nitrogen 26 mg/dL (9-20); Calcium 9.5 mg/dL (8.4-10.2); Carbon Dioxide 20 mmol/L (22-30); Chloride 106 mmol/L (98-107); Estimated CRCL calculation 38 ml/min; Estimated Glomerular Filt Rate 31; Glucose 156 mg/dL (65-110); Magnesium 2.3 mg/dL (1.6-2.3); Potassium 4.9 mmol/L (3.4-5.0); Sodium 131 mmol/L (137-145)
--- NOTE | 2022-07-13 07:05 | PC.NURSE ---
PATIENT TO MRI VIA WHEELCHAIR.
--- NOTE | 2022-07-13 08:30 | PC.NURSE ---
Patient back to unit from MRI
[2022-07-13] MEDS: traMADol HCL (*CRX) 50 MG TABLET PO (09:36)
[2022-07-13] MEDS: amLODIPine BESYLATE 5 MG TABLET 10 MG PO (09:37)
[2022-07-13] MEDS: NICOTINE (*PBKC) 21 MG PATCH 1 PATCH TRANSDERM (09:37)
[2022-07-13] MEDS: LIDOCAINE 5% PATCH 1 PATCH TRANSDERM (09:37)
[2022-07-13] MEDS: ENOXAPARIN 40 MG/0.4 ML SYRINGE SUB-Q (09:37)
[2022-07-13] MEDS: methocarbamoL 750 MG TABLET PO ×2 (09:38→17:41)
[2022-07-13] MEDS: predniSONE 40 MG, predniSONE 10 MG 50 MG PO (09:38)
--- NOTE | 2022-07-13 10:09 | PM.PNNEP ---
Progress Note: A&P Assessment and Plan (1) CKD (chronic kidney disease): Code(s): N18.9 - Chronic kidney disease, unspecified Status: Chronic Assessment and Plan: had been following with Dr. Galeas for kidney issues unable to get specifics from patient... old records requested but I was able to discuss case with Dr. 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 I discussed with Dr. Porter yesterday. 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 never started on immunosupprestion due to recurrent dental infections that he would not get treatment for and significant non-compliance last seen in 2018 -- creatinine at that time was 2.4mg/dl hence he has CKD and surprisingly, renal function is relatively stable in comparison to 5 years ago (CKD stage 3b) Renal ultrasound shows small kidneys. today his creatinine is stable at 2.2. (2) Uncontrolled hypertension: Code(s): I10 - Essential (primary) hypertension Status: Acute Assessment and Plan: Systolic 150-170. follow-up on Echo pain maybe playing a role currently on amlodipine and PRN hydralazine Will add PETER-inhibitor. Consider changing amlodipine to diltiazem down the line to help with swelling. (3) Acute right flank pain: Code(s): R10.9 - Unspecified abdominal pain Status: Acute Assessment and Plan: unclear etiology imaging noted MRI done and pending. It sounds musculoskeletal. Subjective Date/time seen: 07/13/22 10:10 Interval history: Parveen still has right lower back pain. It is at the level of his belt. He has no rash. He said his pain was much better this morning. Then he got up to the bathroom and it started hurting on his way back. The knee went for MRI and the table lead to worsening of the back pain and now he is miserable. He told the nurse earlier today when he was in no pain that he did not need a pain pill. He has not called the nurse again. I talked with nursing and they will bring a pill in for him. No chest pain or shortness of breath. No pain with urination. Exam Narrative: WDWN in NAD skin no rash or subQ nodules head ncat lungs clear bilateral cor reg no rub abd BS+ nontender and soft ext trace edema. Objective Data Vital Signs Vital Signs: Vital Signs - 24 hr 07/12/22 14:00 07/12/22 12:00 07/12/22 16:00 Temperature 98.2 F Pulse Rate 64 60 60 Respiratory Rate 20 Blood Pressure 155/72 H Pulse Oximetry 96 Oxygen Delivery 07/12/22 19:41 07/12/22 20:00 07/13/22 04:29 Temperature 97.8 F 97.8 F Pulse Rate 80 79 Respiratory Rate 18 18 Blood Pressure 171/80 H 165/95 H Pulse Oximetry 97 97 Oxygen Delivery Room Air 07/12/22 20:00 07/13/22 00:00 07/13/22 04:00 Temperature Pulse Rate 85 82 61 Respiratory Rate Blood Pressure Pulse Oximetry Oxygen Delivery Intake/Output Intake/Output: Intake & Output 07/10/22 07/11/22 07/12/22 07/13/22 23:59 23:59 23:59 23:59 Intake Total 2100 900 1220 690 Output Total 200 Balance 2100 700 1220 690 Meds/Results Medications: Active Medications Generic Name Dose Route Start Last Admin Trade Name Freq PRN Reason Stop Dose Admin Acetaminophen 1,000 mg 07/10/22 23:59 Acetaminophen 500 Mg Tablet PO Q6H PRN Mild Pain (1-3) or Fever Amlodipine Besylate 10 mg 07/11/22 09:00 07/13/22 09:37 Amlodipine Besylate 5 Mg Tablet PO 10 mg QAM MOLLY Administration Calcium Carbonate 200 mg 07/11/22 21:40 07/12/22 15:56 Calcium Carbonate (Tums) 500 Mg (200 Mg Elemental) PO 200 mg Q6H PRN Administration Indigestion Enoxaparin Sodium 40 mg 07/11/22 09:00 07/13/22 09:37 Enoxaparin 40 Mg/0.4 Ml Syringe SUB-Q 40 mg DAILY MOLLY Administration Hydralazine HCl 10 mg 07/10/22 23:57 Hydralazine Hcl 20 Mg/Ml Vial IV PUSH Q8H PRN Blood Pressure -
--- NOTE | 2022-07-13 15:22 | PM.IMPN ---
Progress Note: A&P Assessment and Plan (1) Acute right flank pain: Code(s): R10.9 - Unspecified abdominal pain Status: Acute Assessment and Plan: likely etiology right sacroilitis. will start steroid. muscle rleaxant. lidocaine patch locally. 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 no featrues of lumbar radiculopathy MRI with right SI joint ankylosis lumbar MRI with lumbar spondylosis bilateral moderate neuroforaminal stenosis present as well Will check HLA B27. PT OT Might need to see pain management as an outpatient basis (2) Renal insufficiency: Code(s): N28.9 - Disorder of kidney and ureter, unspecified Status: Acute Assessment and Plan: Patient with longstanding hypertension which has been untreated has underlying CKD stage III, biopsy diagnosis of Membranous nephropathy with full house on immunofluorescence but negative serology or clinical evidence of lupus. Patient was not treated with immunosuppressant/cytotoxic agents secondary to concern for follow-up. Creatinine in the past was 2.8 as of note from 2017 high protein urea and hyper parathyroidism Creatinine seems to be at baseline He was started on mycophenolate mofetil in the past Renal ultrasound negative (3) Uncontrolled hypertension: Code(s): I10 - Essential (primary) hypertension Status: Acute Assessment and Plan: Has been on treated. He used to be on furosemide carvedilol and amlodipine lisinopril in the past Started on amlodipine Hydralazine p.r.n. Echo with EF 60-65% grade 3 diastolic dysfunction no significant valvular abnormality (4) Obesity (BMI 30-39.9): Code(s): E66.9 - Obesity, unspecified Status: Acute Assessment and Plan: Lifestyle and diet modifications Plan Elevated D-dimer V/Q scan was negative History of membranous nephropathy determined by biopsy he presented with anasarca and 2013 found to have 10 g of proteinuria. Kidney biopsy performed revealed membranous nephropathy with full house on immunofluorescence but negative serology clear clinical evidence of lupus. His creatinine at that time was 0.9. 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 Creatinine slowly has worsened to 2.8 back in 2017 Nephrotic range proteinuria CKD stage 3 Subjective Date/time seen: 07/13/22 15:22 Interval history: patient reports pain was much better this morning however when he went to the bathroom and started to exacerbate again. He took tramadol recently. Review of Systems Review of Systems: All systems reviewed & are unremarkable except as noted in HPI and below Exam Narrative: moderately obese Not in acute distress Patient is comfortable, NAD HEENT: eyes are clear and none icteric LUNGS: normal respiratory effort ABD: right SI joint tenderness Lower extremities: no edema no cyanosis or clubbing SKIN: nonjaundiced Neuro: grossly intact. Objective Data Vital Signs Vital Signs: Vital Signs - 24 hr 07/12/22 16:00 07/12/22 19:41 07/12/22 20:00 Temperature 97.8 F Pulse Rate 60 80 Respiratory Rate 18 Blood Pressure 171/80 H Pulse Oximetry 97 Oxygen Delivery Room Air 07/13/22 04:29 07/12/22 20:00 07/13/22 00:00 Temperature 97.8 F Pulse Rate 79 85 82 Respiratory Rate 18 Blood Pressure 165/95 H Pulse Oximetry 97 Oxygen Delivery 07/13/22 04:00 07/13/22 09:37 07/13/22 12:00 Temperature Pulse Rate 61 79 Respiratory Rate Blood Pressure Pulse Oximetry Oxygen Delivery Room Air Intake/Output Intake/Output: Intake & Output 07/10/22 07/11/22 07/12/22 07/13/22 23:59 23:59 23:59 23:59 Intake Total 2100 900 1220 930 Output Total 200 Balance 2100 700 1220 930 Meds/Results Medications: Active Medications Generic Name Dose Route Start Last Admin Trade Name Freq PRN Reason Stop Dose Admin Acetaminophen 1,000 m
[2022-07-14] VITALS (9 sets, daily range): BP systolic 159–167; BP diastolic 73–91; PULSE 57–85; RESP 18–20; TEMP 36.1–36.7; O2SAT 97–98
[2022-07-14] MEDS: NICOTINE (*PBKC) 21 MG PATCH 1 PATCH TRANSDERM (05:10)
[2022-07-14 05:42] LABS: Basophils Absolute Auto 0.1 K/mm3 (0.0-0.1); Basophils Percent Auto 0.5 % (0.2-1.2); Eosinophils Absolute Auto 0.1 K/mm3 (0-0.3); Eosinophils Percent Auto 0.9 % (0-4.4); Hematocrit 48.6 % (42.0-52.0); Hemoglobin 16.3 g/dL (14.0-18.0); Immature Granulocyte Absolute 0.12 K/mm3 (0.00-0.031); Immature Granulocyte Percent A 0.8 % (0-0.5); Lymphocytes Absolute Auto 3.09 K/mm3 (0.9-3.2); Lymphocytes Percent Auto 20.7 % (18.3-44.2); Mean Corpuscular HGB Conc 33.5 g/dl (32-36); Mean Corpuscular Hemoglobin 30.6 pg (26-34); Mean Corpuscular Volume 91.2 fl (80-100); Mean Platelet Volume 11.5 fl (7.4-10.4); Monocytes Absolute Auto 0.8 K/mm3 (0.1-0.6); Monocytes Percent Auto 5.6 % (2.6-8.5); Neutrophils Absolute Auto 10.7 K/mm3 (1.3-6.7); Neutrophils Percent Auto 71.5 % (45.5-73.1); Platelet Count Result 284 k/mm3 (150-375); Red Blood Count 5.33 M/mm3 (4.6-6.20); Red Cell Distribution Width 13.7 % (11.5-14.5); White Blood Count 14.9 K/mm3 (4.5-10.0)
[2022-07-14 05:55] LABS: Alanine Aminotransferase 33 U/L (6-50); Albumin Level 3.6 g/dL (3.5-5.1); Alkaline Phosphatase 78 U/L (38-126); Anion Gap 7 mmol/L (8-16); Aspartate Amino Transferase 22 U/L (17-59); Bilirubin,Total 0.4 mg/dL (0.2-1.3); Blood Urea Nitrogen 26 mg/dL (9-20); Calcium 9.1 mg/dL (8.4-10.2); Carbon Dioxide 23 mmol/L (22-30); Chloride 108 mmol/L (98-107); Estimated CRCL calculation 37 ml/min; Estimated Glomerular Filt Rate 29; Glucose 141 mg/dL (65-110); Magnesium 2.4 mg/dL (1.6-2.3); Phosphorus 3.4 mg/dL (2.5-4.5); Potassium 4.5 mmol/L (3.4-5.0); Sodium 138 mmol/L (137-145)
[2022-07-14] MEDS: amLODIPine BESYLATE 5 MG TABLET 10 MG PO (09:08)
[2022-07-14] MEDS: ENOXAPARIN 40 MG/0.4 ML SYRINGE SUB-Q (09:08)
[2022-07-14] MEDS: LIDOCAINE 5% PATCH 1 PATCH TRANSDERM (09:08)
[2022-07-14] MEDS: predniSONE 40 MG, predniSONE 10 MG 50 MG PO (09:08)
[2022-07-14] MEDS: methocarbamoL 750 MG TABLET PO ×2 (09:08→17:55)
--- NOTE | 2022-07-14 10:02 | PM.PNNEP ---
Progress Note: A&P Assessment and Plan (1) CKD (chronic kidney disease): Qualifiers: Chronic kidney disease stage 3 subtype: stage 3b (GFR 30-44) Code(s): N18.9 - Chronic kidney disease, unspecified Status: Chronic Assessment and Plan: had been following with Dr. Galeas for kidney issues unable to get specifics from patient... old records requested but I was able to discuss case with Dr. 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 due to class 4 lupus (despite negative serological work-up) never started on immunosuppression due to recurrent dental infections that he would not get treatment for and significant non-compliance last seen in 2018 -- creatinine at that time was 2.4mg/dl hence he has CKD and surprisingly, renal function is relatively stable in comparison to 5 years ago (CKD stage 3b) imaging noted small/atrophic kidneys (likely due to disease progression) likely not a candidate for any other therapy at this time creatinine stable with stable UOP and electrolytes (2) Uncontrolled hypertension: Code(s): I10 - Essential (primary) hypertension Status: Acute Assessment and Plan: better in comparison to admission follow-up on Echo pain maybe playing a role currently on amlodipine and PRN hydralazine consider changing amlodipine to diltiazem to help with swelling and antiproteinuric effects ideally, should be on PETER-I/ARB (assuming his renal function can tolerate) (3) Acute right flank pain: Code(s): R10.9 - Unspecified abdominal pain Status: Acute Assessment and Plan: unclear etiology previous imaging noted MRI results noted as well pain control Will continue to follow -- should follow-up with Dr. Galeas for ongoing management of his CKD on discharge. Subjective Date/time seen: 07/14/22 10:02 Chart reviewed since last seen -- renal function remains relatively stable; no other acute issues or problems to report at this time; no other events overnight or earlier this AM. Exam Narrative: General: WD/WN male in NAD Heart: normal S1 and S2; no rub Lungs: clear to auscultation Abdomen: soft, nontender, nondistended, positive bowel sounds Extremities: no cyanosis or clubbing; no edema Skin: warm and dry Objective Data Vital Signs Vital Signs: Vital Signs Temp Pulse Resp BP Pulse Ox O2 Del Method 07/14/22 09:12 Room Air 07/14/22 05:39 97.8 F 77 18 167/91 H 97 07/14/22 04:00 69 07/14/22 00:00 72 07/13/22 21:17 97.8 F 76 18 156/69 H 96 07/13/22 20:00 84 19 97 Room Air 07/13/22 20:00 84 07/13/22 16:00 85 07/13/22 15:37 97.6 F 83 19 172/80 H 97 07/13/22 12:00 79 Intake/Output Intake/Output: Intake & Output 07/11/22 07/12/22 07/13/22 07/14/22 23:59 23:59 23:59 23:59 Intake Total 900 1220 2270 360 Output Total 200 Balance 700 1220 2270 360 Meds/Results Medications: Active Medications Generic Name Dose Route Start Last Admin Trade Name Freq PRN Reason Stop Dose Admin Acetaminophen 1,000 mg 07/10/22 23:59 Acetaminophen 500 Mg Tablet PO Q6H PRN Mild Pain (1-3) or Fever Amlodipine Besylate 10 mg 07/11/22 09:00 07/14/22 09:08 Amlodipine Besylate 5 Mg Tablet PO 10 mg QAM MOLLY Administration Calcium Carbonate 200 mg 07/11/22 21:40 07/12/22 15:56 Calcium Carbonate (Tums) 500 Mg (200 Mg Elemental) PO 200 mg Q6H PRN Administration Indigestion Enoxaparin Sodium 40 mg 07/11/22 09:00 07/14/22 09:08 Enoxaparin 40 Mg/0.4 Ml Syringe SUB-Q 40 mg DAILY MOLLY Administration Hydralazine HCl 10 mg 07/10/22 23:57 Hydralazine Hcl 20 Mg/Ml Vial IV PUSH Q8H PRN Blood Pressure - High tym=940 Lidocaine 1 patch 07/12/22 15:35 07/14/22 09:08 Lidocaine 5% Patch TRANSDERM 1 patch DAILY [facility] Administratio
--- NOTE | 2022-07-14 10:02 | P.PNNP_ITS ---
Progress Note: A&P Assessment and Plan (1) CKD (chronic kidney disease): Qualifiers: Chronic kidney disease stage 3 subtype: stage 3b (GFR 30-44) Code(s): N18.9 - Chronic kidney disease, unspecified Status: Chronic Assessment and Plan: * had been following with Dr. Galeas for kidney issues * unable to get specifics from patient... * old records requested but I was able to discuss case with Dr. Galeas: * known nephrotic range proteinuria * renal biopsy demonstrated full house membranous nephropathy due to class 4 lupus (despite negative serological work-up) * never started on immunosuppression due to recurrent dental infections that he would not get treatment for and significant non-compliance * last seen in 2018 -- creatinine at that time was 2.4mg/dl * hence he has CKD and surprisingly, renal function is relatively stable in comparison to 5 years ago (CKD stage 3b) * imaging noted small/atrophic kidneys (likely due to disease progression) * likely not a candidate for any other therapy at this time * creatinine stable with stable UOP and electrolytes (2) Uncontrolled hypertension: Code(s): I10 - Essential (primary) hypertension Status: Acute Assessment and Plan: * better in comparison to admission * follow-up on Echo * pain maybe playing a role * currently on amlodipine and PRN hydralazine * consider changing amlodipine to diltiazem to help with swelling and antiproteinuric effects * ideally, should be on PETER-I/ARB (assuming his renal function can tolerate) (3) Acute right flank pain: Code(s): R10.9 - Unspecified abdominal pain Status: Acute Assessment and Plan: * unclear etiology * previous imaging noted * MRI results noted as well * pain control Will continue to follow -- should follow-up with Dr. Galeas for ongoing management of his CKD on discharge. Subjective Date/time seen: 07/14/22 10:02 Chart reviewed since last seen -- renal function remains relatively stable; no other acute issues or problems to report at this time; no other events overnight or earlier this AM. Exam Narrative: General: WD/WN male in NAD Heart: normal S1 and S2; no rub Lungs: clear to auscultation Abdomen: soft, nontender, nondistended, positive bowel sounds Extremities: no cyanosis or clubbing; no edema Skin: warm and dry Objective Data Vital Signs Vital Signs: Vital Signs Temp Pulse Resp BP Pulse Ox O2 Del Method 07/14/22 09:12 Room Air 07/14/22 05:39 97.8 F 77 18 167/91 H 97 07/14/22 04:00 69 07/14/22 00:00 72 07/13/22 21:17 97.8 F 76 18 156/69 H 96 07/13/22 20:00 84 19 97 Room Air 07/13/22 20:00 84 07/13/22 16:00 85 07/13/22 15:37 97.6 F 83 19 172/80 H 97 07/13/22 12:00 79 Intake/Output Intake/Output: Intake & Output 07/11/22 07/12/22 07/13/22 07/14/22 23:59 23:59 23:59 23:59 Intake Total 900 1220 2270 360 Output Total 200 Balance 700 1220 2270 360 Meds/Results Medications: Active Medications Generic Name Dose Route Start Last Admin Trade Name Freq PRN Reason Stop Dose Admin Acetaminophen 1,000 mg 07/10/22 23:59
--- NOTE | 2022-07-14 15:26 | PM.IMPN ---
Progress Note: A&P Assessment and Plan (1) Acute right flank pain: Code(s): R10.9 - Unspecified abdominal pain Status: Acute Assessment and Plan: likely etiology right sacroilitis. will start steroid. muscle rleaxant. lidocaine patch locally. 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 no featrues of lumbar radiculopathy MRI with right SI joint ankylosis lumbar MRI with lumbar spondylosis bilateral moderate neuroforaminal stenosis present as well Will check HLA B27. 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 (2) Renal insufficiency: Code(s): N28.9 - Disorder of kidney and ureter, unspecified Status: Acute Assessment and Plan: Patient with longstanding hypertension which has been untreated has underlying CKD stage III, biopsy diagnosis of Membranous nephropathy with full house on immunofluorescence but negative serology or clinical evidence of lupus. Patient was not treated with immunosuppressant/cytotoxic agents secondary to concern for follow-up. Creatinine in the past was 2.8 as of note from 2017 high protein urea and hyper parathyroidism Creatinine seems to be at baseline He was started on mycophenolate mofetil in the past Renal ultrasound negative (3) Uncontrolled hypertension: Code(s): I10 - Essential (primary) hypertension Status: Acute Assessment and Plan: Has been on treated. He used to be on furosemide carvedilol and amlodipine lisinopril in the past Started on amlodipine Hydralazine p.r.n. Echo with EF 60-65% grade 3 diastolic dysfunction no significant valvular abnormality (4) Obesity (BMI 30-39.9): Code(s): E66.9 - Obesity, unspecified Status: Acute Assessment and Plan: Lifestyle and diet modifications Plan Elevated D-dimer V/Q scan was negative History of membranous nephropathy determined by biopsy he presented with anasarca and 2013 found to have 10 g of proteinuria. Kidney biopsy performed revealed membranous nephropathy with full house on immunofluorescence but negative serology clear clinical evidence of lupus. His creatinine at that time was 0.9. Has missed follow-up with his ophthalmology technician. Creatinine slowly has worsened to 2.8 back in 2017 Nephrotic range proteinuria CKD stage 3 Subjective Date/time seen: 07/14/22 15:26 likely etiology right sacroilitis. will start steroid. muscle rleaxant. lidocaine patch locally. 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 no featrues of lumbar radiculopathy MRI with right SI joint ankylosis lumbar MRI with lumbar spondylosis bilateral moderate neuroforaminal stenosis present as well Will check HLA B27. 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 Review of Systems Review of Systems: All systems reviewed & are unremarkable except as noted in HPI and below Exam Narrative: moderately obese Not in acute distress Patient is comfortable, NAD HEENT: eyes are clear and none icteric LUNGS: normal respiratory eff
[2022-07-14] MEDS: GABAPENTIN 300 MG CAPSULE PO (17:55)
[2022-07-15] VITALS: PULSE 67
[2022-07-15 04:00] VITALS: PULSE 65
[2022-07-15 05:59] VITALS: BP 151/80; PULSE 76; RESP 18; TEMP 36.7; O2SAT 97
[2022-07-15 06:48] LABS: Albumin Level 3.6 g/dL (3.5-5.1); Anion Gap 3 mmol/L (8-16); Blood Urea Nitrogen 29 mg/dL (9-20); Calcium 10.2 mg/dL (8.4-10.2); Carbon Dioxide 21 mmol/L (22-30); Chloride 107 mmol/L (98-107); Estimated CRCL calculation 42 ml/min; Estimated Glomerular Filt Rate 34; Glucose 118 mg/dL (65-110); Phosphorus 3.7 mg/dL (2.5-4.5); Potassium 4.9 mmol/L (3.4-5.0); Sodium 131 mmol/L (137-145)
[2022-07-15 08:00] VITALS: PULSE 56
[2022-07-15] MEDS: amLODIPine BESYLATE 5 MG TABLET 10 MG PO (08:41)
[2022-07-15] MEDS: predniSONE 40 MG, predniSONE 10 MG 50 MG PO (08:41)
[2022-07-15] MEDS: GABAPENTIN 300 MG CAPSULE PO (08:42)
[2022-07-15] MEDS: ENOXAPARIN 40 MG/0.4 ML SYRINGE SUB-Q (08:42)
[2022-07-15] MEDS: NICOTINE (*PBKC) 21 MG PATCH 1 PATCH TRANSDERM (08:42)
[2022-07-15] MEDS: LIDOCAINE 5% PATCH 1 PATCH TRANSDERM (08:42)
[2022-07-15] MEDS: methocarbamoL 750 MG TABLET PO (08:42)
--- NOTE | 2022-07-15 10:27 | PM.DS ---
DS: Admitting Diagnosis Discharge Date Admitting Diagnosis Back pain DS: Discharge Diagnosis Discharge Diagnosis (1) Acute right flank pain: Code(s): R10.9 - Unspecified abdominal pain Status: Acute Assessment and Plan: likely etiology right sacroilitis. will start steroid. muscle rleaxant. lidocaine patch locally. 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 no featrues of lumbar radiculopathy MRI with right SI joint ankylosis lumbar MRI with lumbar spondylosis bilateral moderate neuroforaminal stenosis present as well Will check HLA B27. 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 (2) Renal insufficiency: Code(s): N28.9 - Disorder of kidney and ureter, unspecified Status: Acute Assessment and Plan: Patient with longstanding hypertension which has been untreated has underlying CKD stage III, biopsy diagnosis of Membranous nephropathy with full house on immunofluorescence but negative serology or clinical evidence of lupus. Patient was not treated with immunosuppressant/cytotoxic agents secondary to concern for follow-up. Creatinine in the past was 2.8 as of note from 2017 high protein urea and hyper parathyroidism Creatinine seems to be at baseline He was started on mycophenolate mofetil in the past Renal ultrasound negative (3) Uncontrolled hypertension: Code(s): I10 - Essential (primary) hypertension Status: Acute Assessment and Plan: Has been on treated. He used to be on furosemide carvedilol and amlodipine lisinopril in the past Started on amlodipine Hydralazine p.r.n. Echo with EF 60-65% grade 3 diastolic dysfunction no significant valvular abnormality (4) Obesity (BMI 30-39.9): Code(s): E66.9 - Obesity, unspecified Status: Acute Assessment and Plan: Lifestyle and diet modifications Plan Elevated D-dimer V/Q scan was negative History of membranous nephropathy determined by biopsy he presented with anasarca and 2013 found to have 10 g of proteinuria. Kidney biopsy performed revealed membranous nephropathy with full house on immunofluorescence but negative serology clear clinical evidence of lupus. His creatinine at that time was 0.9. Has missed follow-up with his field property loss specialist. Creatinine slowly has worsened to 2.8 back in 2017 Nephrotic range proteinuria CKD stage 3 DS: Summary Hospital Course Reason for hospitalization: back pain Narrative: This is a 61-year-old male with past medical history significant for hypertension, obesity, patient has not seen a doctor in a long time he is not on any medications at home his blood pressure is not well controlled patient presented to the emergency room due to back pain localized to the right costovertebral area with radiation to the right lower flank at the abdominal area, patient has been in his usual state of health up until this point described the pain of 10/10 in intensity it is worse with ambulation denies lifting heavy boxes or moving heavy objects, took ibuprofen and Tylenol with no relief, no hematuria, no pain or burning with urination, no fevers, no rigors, no chills, no nausea, no vomiting, no incontinence.? Preliminary workup was significant for a creatinine of 2.9 BUN 28, he was noted to be hypertensive with systolic in the range of 160-200s, Hospital Course: HLA-B27 still pending, suspect patient may have lupus, resulting joint pain and injury to his kidneys, ? being treated with steroids, added
--- NOTE | 2022-07-15 11:52 | PC.NURSE ---
Patient is requesting medical records. Drawing Tender filled out form with patient and faxed form down to medical records.
[2022-07-21 14:19] LABS: HLA B27 Negative (Negative)
== END 2022-07-15 11:57 | disposition home or self-care (01) | DRG 346 ==
LOC: ANHED 20:29 → ANH3MED 21:56
PROVIDERS: Internal Medicine; Internal Medicine Nephrology; Physician Assistant; Admitting Provider Internal Medicine; Emergency Provider Emergency Medicine; Visit Provider Family Medicine
DX: M32.14 Glomerular disease in systemic lupus erythematosus (principal); N18.32 Chronic kidney disease, stage 3b; E21.3 Hyperparathyroidism, unspecified; I12.9 Hypertensive chronic kidney disease with stage 1 through stage 4 chronic kidney disease, or unspecified chronic kidney disease; E66.9 Obesity, unspecified; M46.1 Sacroiliitis, not elsewhere classified; Z20.822 Contact with and (suspected) exposure to COVID-19; F17.210 Nicotine dependence, cigarettes, uncomplicated; Z68.39 Body mass index [BMI] 39.0-39.9, adult; Z87.442 Personal history of urinary calculi
CPT/HCPCS: 36415; 71046; 72148; 72197; 74176; 76775; 78580; 80048; 80053; 80069; 81001; 81050; 82570; 83690; 83735; 84100; 84156; 84300; 84484; 84540; 85025; 85027; 85380; 85999; 86812; 87086; 87636; 93005; 93306; 96365; 96366; 96372; 96375; 96376; 99285; A9270; A9540; G0378; G0379; J0131; J0360; J1170; J1650; J2270; J2405; J7030; J7512

== ENCOUNTER 2022-09-12 11:05 | Outpatient (CLI) | payer OTHER, SELFPAY ==
[2022-09-12 11:29] LABS: Basophils Absolute Auto 0.1 K/mm3 (0.0-0.1); Basophils Percent Auto 1.3 % (0.2-1.2); Eosinophils Absolute Auto 0.5 K/mm3 (0-0.3); Eosinophils Percent Auto 4.9 % (0-4.4); Hematocrit 46.3 % (42.0-52.0); Hemoglobin 15.8 g/dL (14.0-18.0); Immature Granulocyte Absolute 0.08 K/mm3 (0.00-0.031); Immature Granulocyte Percent A 0.8 % (0-0.5); Lymphocytes Absolute Auto 2.37 K/mm3 (0.9-3.2); Lymphocytes Percent Auto 23.1 % (18.3-44.2); Mean Corpuscular HGB Conc 34.1 g/dl (32-36); Mean Corpuscular Hemoglobin 31.2 pg (26-34); Mean Corpuscular Volume 91.5 fl (80-100); Mean Platelet Volume 10.4 fl (7.4-10.4); Monocytes Absolute Auto 0.6 K/mm3 (0.1-0.6); Monocytes Percent Auto 6.2 % (2.6-8.5); Neutrophils Absolute Auto 6.5 K/mm3 (1.3-6.7); Neutrophils Percent Auto 63.7 % (45.5-73.1); Platelet Count Result 279 k/mm3 (150-375); Red Blood Count 5.06 M/mm3 (4.6-6.20); Red Cell Distribution Width 13.4 % (11.5-14.5); White Blood Count 10.3 K/mm3 (4.5-10.0)
[2022-09-12 13:42] LABS: Alanine Aminotransferase 31 U/L (6-50); Albumin Level 3.7 g/dL (3.5-5.1); Alkaline Phosphatase 100 U/L (38-126); Anion Gap 7 mmol/L (8-16); Aspartate Amino Transferase 26 U/L (17-59); Bilirubin,Total 0.4 mg/dL (0.2-1.3); Blood Urea Nitrogen 15 mg/dL (9-20); CRP 0.6 mg/dL (<1.0); Calcium 9.6 mg/dL (8.4-10.2); Carbon Dioxide 21 mmol/L (22-30); Chloride 107 mmol/L (98-107); Estimated Glomerular Filt Rate 32; Glucose 104 mg/dL (65-110); Potassium 4.5 mmol/L (3.4-5.0); Sodium 135 mmol/L (137-145)
[2022-09-12 13:44] LABS: Complement C3 136 mg/dL (88-165); Rheumatoid Factor < 8.6 IU/ML (<12)
[2022-09-12 13:50] LABS: Creatinine Urine 73.2 mg/dL
[2022-09-12 14:03] LABS: Erythrocyte Sedimentation Rate 20 mm/hr (0-20); Total Protein Urine Random > 600 mg/dL
[2022-09-16 03:52] LABS: Angiotensin Converting Enzyme 17 U/L (9-67)
[2022-09-16 11:33] LABS: SM Antibody <1.0; SM/RNP Antibody <1.0; SS-A <1.0; SS-B <1.0
[2022-09-16 19:01] LABS: HLA B27 Negative (Negative)
[2022-09-17 13:21] LABS: Anti Cyclic Citrullinated Pept <16 Units (<20)
[2022-09-17 21:43] LABS: Lupus dRVVT Screen 39 sec (<=45); PTT-LA Screen 33 sec (<=40)
== END 2022-09-12 11:06 | disposition home or self-care (01) ==
LOC: ANHLAB 11:07
PROVIDERS: PCP Family Medicine; Visit Provider Internal Medicine
DX: N18.32 Chronic kidney disease, stage 3b (principal); M43.28 Fusion of spine, sacral and sacrococcygeal region; M19.90 Unspecified osteoarthritis, unspecified site
CPT/HCPCS: 36415; 80053; 82164; 82570; 84156; 85025; 85613; 85652; 85730; 86038; 86140; 86160; 86200; 86225; 86235; 86430; 86812

== ENCOUNTER 2022-09-18 10:13 | Outpatient (CLI) | payer OTHER, SELFPAY ==
[2022-09-26 19:50] LABS: Calprotectin, Stool 13 mcg/g
== END 2022-09-18 10:14 | disposition home or self-care (01) ==
PROVIDERS: PCP Family Medicine; Visit Provider Internal Medicine
DX: N18.32 Chronic kidney disease, stage 3b (principal); M43.28 Fusion of spine, sacral and sacrococcygeal region
CPT/HCPCS: 83993